=== PATIENT | female | born 1985 | race Caucasian/White ===

== ENCOUNTER 2018-01-15 23:06 | Emergency (ER) | END 2018-01-16 02:00 | disposition left against medical advice (07) ==

== ENCOUNTER 2018-02-28 17:50 | Emergency (ER) | END 2018-02-28 22:57 | disposition home or self-care (01) ==

== ENCOUNTER 2018-05-14 21:55 | Outpatient (CLI) | END 2018-05-15 01:05 | disposition home or self-care (01) ==

== ENCOUNTER 2018-06-12 17:47 | Outpatient (CLI) | END 2018-06-13 00:13 | disposition home or self-care (01) ==

== ENCOUNTER 2018-06-15 21:12 | Outpatient (CLI) | END 2018-06-15 22:35 | disposition home or self-care (01) ==

== ENCOUNTER 2018-07-16 23:20 | Outpatient (CLI) | END 2018-07-17 14:48 | disposition home or self-care (01) ==

== ENCOUNTER 2018-08-07 16:00 | Inpatient (IN) | END 2018-08-10 15:30 | disposition home or self-care (01) | DRG 775 ==

== ENCOUNTER 2018-09-11 16:34 | Emergency (ER) | END 2018-09-11 19:40 | disposition home or self-care (01) ==